=== PATIENT | male | born 1970 | race Caucasian/White ===

== ENCOUNTER 2016-07-02 06:28 | Emergency (ER) | payer OTHER ==
[2016-07-02 06:58] VITALS: BMI 31.1
--- NOTE | 2016-07-02 07:31 | PDOC ---
*Physical Exam - Vital Signs Last Vital Signs Temp Pulse Resp BP Pulse Ox 98.9 F 94 H 18 116/91 98 07/02/16 06:56 07/02/16 06:56 07/02/16 06:56 07/02/16 06:56 07/02/16 06:56 - Physical Exam Comments: 07/02/16 07:31 MIDLEVEL NOTE Pt seen by Midlevel Provider under my direct supervision. Pt interviewed and examined. Ancillary studies reviewed. I agree with plan as outlined by Midlevel Provider. 07/02/16 09:09 Site of recent right buttock injection is painful Pain and swelling to his right buttock after receiving testosterone injection last in right buttock Ultrasound Soft tissue swelling/edema without discrete collection/hematoma *DC/Admit/Observation/Transfer Diagnosis at time of Disposition: Right buttock pain - Discharge Dispostion Disposition: HOME Condition at time of disposition: Improved - Prescriptions Prescriptions: Cephalexin [Keflex] 500 mg PO BID #14 capsule - Referrals Referrals: Tone Tabares [Primary Care Provider] - - Patient Instructions Printed Discharge Instructions: Testosterone Injection Additional Instructions: Recommend you put hot soaks to the affected area at least 15 minutes continually 4 times a day. If symptoms do not improve over the next 24 hours and recommended starting the antibiotic. I also recommend that you follow-up with your PCP on Friday.
--- NOTE | 2016-07-02 07:38 | PDOC ---
History of Present Illness - General Chief Complaint: Respiratory Stated Complaint: REDNESS AND SWELLING, FEVER History Source: Patient Exam Limitations: No Limitations - History of Present Illness Initial Comments: 07/02/16 08:11 46-year-old male presents to the ED with complaints of pain and swelling to his right buttock after receiving testosterone injection last by his PCP secondary to fatigue. Patient states last night felt flushed and hot but did not take his temperature and today secondary to continual symptoms decided come to the ER for further evaluation. Patient denies medical history including diabetes or immunosuppression. Patient has no rectal discomfort or difficulty moving bowels. Timing/Duration: constant Severity: mild Associated Symptoms: reports: denies symptoms Past History - Past Medical History Allergies/Adverse Reactions: Allergies Allergy/AdvReac Type Severity Reaction Status Date / Time No Known Allergies Allergy Verified 07/02/16 06:58 Home Medications: Ambulatory Orders Cholecalciferol (Vitamin D3) [Vitamin D3] 50,000 unit PO WEEKLY 07/02/16 Ezetimibe [Zetia] 10 mg PO DAILY 07/02/16 Febuxostat [Uloric -] 40 mg PO DAILY 07/02/16 Rosuvastatin [Crestor -] 20 mg PO HS 07/02/16 - Psycho/Social/Smoking Cessation Hx Anxiety: No Suicidal Ideation: No Smoking Status: Yes Smoking History: Current every day smoker Number of Cigarettes Smoked Daily: 2 Information on smoking cessation initiated: No Patient Lives Alone: No Lives with/in: spouse/SO Review of Systems - Review of Systems Able to Perform ROS?: Yes Constitutional: No: Symptoms Reported HEENTM: No: Symptoms Reported Respiratory: No: Symptoms reported Cardiac (ROS): No: Symptoms Reported ABD/GI: No: Symptoms Reported : No: Symptoms Reported Integumentary: Yes: Lumps Neurological: No: Symptoms reported Endocrine: No: Symptoms Reported Hematologic/Lymphatic: No: Symptoms Reported *Physical Exam - Vital Signs Last Vital Signs Temp Pulse Resp BP Pulse Ox 98.9 F 94 H 18 116/91 98 07/02/16 06:56 07/02/16 06:56 07/02/16 06:56 07/02/16 06:56 07/02/16 06:56 - Physical Exam General Appearance: Yes: Nourished, Appropriately Dressed. No: Apparent Distress HEENT: positive: EOMI, KAROLINE. negative: Pale Conjunctivae Neck: positive: Supple Respiratory/Chest: positive: Lungs Clear, Normal Breath Sounds. negative: Respiratory Distress, Accessory Muscle Use Cardiovascular: positive: Regular Rhythm, Regular Rate. negative: Murmur Gastrointestinal/Abdominal: positive: Soft. negative: Decreased BS Extremity: positive: Normal Capillary Refill Integumentary: positive: Swelling (mild erythema over the right buttock measuring 4 x 5 cm) Neurologic: positive: Motor Strength 5/5 (ambulatory) Medical Decision Making - Medical Decision Making 07/02/16 08:23 Patient with right buttock swelling and feeling flushed patient had testosterone injection done last by Dr. Tabares. Patient concerning for cellulitis. Patient ordered for ultrasound. Patient will be discharged home otherwise is negative. Pt willl be discharged with antibiotics. 07/02/16 09:20 Ultrasound shows soft tissue swelling/edema to the right buttock without discrete fluid collection/hematoma. Patient be discharged home with prescription for Keflex if symptoms continue by tomorrow and recommended to place hot soaks to the affected area. Patient also recommended follow up with his PCP in 2 days. *DC/Admit/Observation/Transfer Diagnosis at time of Disposition: Right buttock pain - Discharge Dispostion Disposition: HOME Condition at time of disposition: Improved - Referrals Referrals: Tone Tabares [Primary Care Provider] - - Patient Instructions Printed Discharge Instructions: Testosterone Injection Additional Instructions: Recommend you put hot soaks to the affected area at least 15 minutes continually 4 times a day. If symptoms do not improve over the next 24 hours and recommended starting the antibiotic. I also recommend that you follow-up with your PCP on Friday.
[2016-07-02 09:50] VITALS: BP 142/85; PULSE 91; TEMP 98.1
== END 2016-07-02 09:50 | disposition home or self-care (01) ==
LOC: JER 06:28
DX: R22.2 Localized swelling, mass and lump, trunk (principal); Y84.8 Other medical procedures as the cause of abnormal reaction of the patient, or of later complication, without mention of misadventure at the time of the procedure; F17.210 Nicotine dependence, cigarettes, uncomplicated
CPT/HCPCS: 76882; 99283-25

== ENCOUNTER 2018-09-20 08:28 | Emergency (ER) | payer OTHER ==
[2018-09-20 08:37] VITALS: BP 145/89; PULSE 84; TEMP 98.5; BMI 32.5
--- NOTE | 2018-09-20 08:51 | PDOC ---
History of Present Illness - General Chief Complaint: Pain, Acute Stated Complaint: NECK PAIN Time Seen by Provider: 09/20/18 08:45 History Source: Patient Exam Limitations: No Limitations Past History - Past Medical History Allergies/Adverse Reactions: Allergies Allergy/AdvReac Type Severity Reaction Status Date / Time No Known Allergies Allergy Verified 09/20/18 08:34 Home Medications: Ambulatory Orders Cyclobenzaprine HCl 10 mg PO Q8H PRN #14 tablet 09/20/18 COPD: No Hypercholesterolemia: Yes - Suicide/Smoking/Psychosocial Hx Smoking Status: Yes Smoking History: Current every day smoker Have you smoked in the past 12 months: Yes Number of Cigarettes Smoked Daily: 6 Information on smoking cessation initiated: No Hx Alcohol Use: No Drug/Substance Use Hx: No Substance Use Type: None Review of Systems - Review of Systems Able to Perform ROS?: Yes Is the patient limited [place] proficient: Yes Constitutional: Yes: Symptoms Reported, See HPI, Malaise. No: Fever HEENTM: Yes: See HPI. No: Symptoms Reported Respiratory: No: Symptoms reported Musculoskeletal: Yes: Symptoms Reported, See HPI, Muscle Pain, Neck Pain All Other Systems: Reviewed and Negative *Physical Exam - Vital Signs Last Vital Signs Temp Pulse Resp BP Pulse Ox 98.5 F 84 18 145/89 97 09/20/18 08:35 09/20/18 08:35 09/20/18 08:35 09/20/18 08:35 09/20/18 08:35 - Physical Exam General Appearance: Yes: Nourished, Appropriately Dressed, Apparent Distress, Mild Distress HEENT: positive: KAROLINE, Normal ENT Inspection, TMs Normal, Pharynx Normal Neck: positive: Tender. negative: Supple (diminished ROM due to spasm and tendeness to right SCm and upper trapezius ), Tender midline Respiratory/Chest: positive: Lungs Clear Gastrointestinal/Abdominal: positive: Soft. negative: Tender Musculoskeletal: positive: Normal Inspection, Decreased Range of Motion, Muscle Spasm (palpable tension and spasm to SCM worse at inferior insertion. NO cervical spine/ bone tenderness. ). negative: Vertebral Tenderness Extremity: positive: Normal Capillary Refill, Normal Inspection Integumentary: positive: Normal Color, Dry, Warm Neurologic: positive: roof slater II-XII NML intact, Fully Oriented, Alert, Normal Mood/ Affect, Normal Response, Motor Strength 5/5 Progress Note - Progress Note Progress Note: cervical muscle strain- will treat with NSAIDS and Cyclobenzaprine *DC/Admit/Observation/Transfer Diagnosis at time of Disposition: Cervical myofascial strain Qualifiers: Encounter type: initial encounter Qualified Code(s): S16.1XXA - Strain of muscle, fascia and tendon at neck level, initial encounter - Discharge Dispostion Disposition: HOME Condition at time of disposition: Stable Decision to Admit order: No - Prescriptions Prescriptions: Cyclobenzaprine HCl 10 mg PO Q8H PRN #14 tablet PRN Reason: spasm - Referrals - Patient Instructions Printed Discharge Instructions: DI for Cervical Muscle Strain Additional Instructions: Rest, no heavy lifting or exercise until pain is resolved Hot soaks to neck and low back as often as possible/hot showers or Jacuzzis No massage or therapy until spasm is gone Continue Naprosyn 500 mg tablet, 1 tablet every 8 hours for the next 3 days then as needed for pain and swelling Cyclobenzaprine 1-10mg every 8 hours as needed for spasm If not significant improvement within 24 hours with medication and rest regime, followup with private physician for change in medications and /or therapy. - Post Discharge Activity Forms/Work/School Notes: Back to Work
== END 2018-09-20 08:53 | disposition home or self-care (01) ==
LOC: JERFT 08:28
DX: S16.1XXA Strain of muscle, fascia and tendon at neck level, initial encounter (principal); X58.XXXA Exposure to other specified factors, initial encounter; Y93.89 Activity, other specified; Y92.018 Other place in single-family (private) house as the place of occurrence of the external cause; Y99.8 Other external cause status; M62.838 Other muscle spasm
CPT/HCPCS: 99282-25

== ENCOUNTER 2020-11-10 07:06 | Emergency (ER) | payer OTHER ==
[2020-11-10 07:28] VITALS: BP 118/78; PULSE 70; TEMP 98.1; BMI 26.4
[2020-11-10] MEDS ORDERED: KETOROLAC TROMETHAMINE 30 MG/1 ML VIAL IM ONE (07:32)
[2020-11-10] MEDS ORDERED: KETOROLAC TROMETHAMINE 30 MG/1 ML VIAL ONE (07:41)
== END 2020-11-10 09:13 | disposition home or self-care (01) ==
LOC: JER 07:06
PROC: 3E0233Z Introduction of Anti-inflammatory into Muscle, Percutaneous Approach (ICD-10-PCS; principal; 2020-11-10)
DX: M79.671 Pain in right foot (principal); W20.8XXA Other cause of strike by thrown, projected or falling object, initial encounter; W22.8XXA Striking against or struck by other objects, initial encounter
CPT/HCPCS: 73630-TC-RT-FY; 99284-25

== ENCOUNTER 2021-10-04 10:55 | Emergency (ER) | payer BC, OTHER ==
[2021-10-04 10:58] VITALS: TEMP 98.8; BMI 31.8
[2021-10-04 12:18] VITALS: BP 135/99; PULSE 77
[2021-10-04 13:11] LABS: BASO % 0.5 % (0-2.0); EOS % 2.3 % (0-4.5); HEMATOCRIT 47.1 % (35.4-49); HEMOGLOBIN 15.3 GM/dL (11.7-16.9); LYMPH % 24.4 % (8-40); MCH 24.8 pg (25.7-33.7); MCHC 32.5 g/dl (32.0-35.9); MEAN CELL VOLUME 76.3 fl (80-96); MEAN PLT VOLUME 8.6 fl (7.5-11.1); MONO % 6.2 % (3.8-10.2); NEUT % 66.6 % (42.8-82.8); PLATELET COUNT 165 10^3/uL (134-434); RBC 6.17 M/mm3 (4.00-5.60); RDW 15.6 % (11.9-15.9); WHITE BLOOD COUNT 5.3 K/mm3 (4.0-10.0)
[2021-10-04 13:35] LABS: CALCIUM 8.8 mg/dL (8.5-10.1)
[2021-10-04 13:36] LABS: ALBUMIN 4.1 g/dl (3.4-5.0); BLOOD UREA NITROGEN 17.6 mg/dL (7-18)
[2021-10-04 13:39] LABS: CREATININE 1.3 mg/dL (0.55-1.3)
[2021-10-04 13:41] LABS: BILIRUBIN,TOTAL 0.5 mg/dL (0.2-1); TOT PROT 7.5 g/dl (6.4-8.2)
== END 2021-10-04 14:32 | disposition home or self-care (01) ==
LOC: JER 10:55
DX: R79.9 Abnormal finding of blood chemistry, unspecified (principal)
CPT/HCPCS: 36415; 71045-TC-FY; 80053; 82550; 82553; 84484; 85025; 93005; 93010; 99284-25

== ENCOUNTER 2022-10-03 20:38 | Emergency (ER) | payer BC ==
[2022-10-03 20:51] VITALS: BP 127/93; PULSE 101; RESP 19; TEMP 98.1; BMI 29.8
[2022-10-03] MEDS ORDERED: SODIUM CHLORIDE 0.9% 500 ML INFUS.BAG IV ONE (21:27)
[2022-10-03] MEDS ORDERED: METOCLOPRAMIDE HCL INJECTION 10 MG/2 ML VIAL IVPUSH ONE (21:28)
[2022-10-03] MEDS ORDERED: METOCLOPRAMIDE HCL INJECTION 10 MG/2 ML VIAL ONE (21:42)
[2022-10-03 23:03] LABS: HEMATOCRIT 40.1 % (35.4-49); HEMOGLOBIN 13.3 GM/dL (11.7-16.9); MCH 24.1 pg (25.7-33.7); MCHC 33.2 g/dl (32.0-35.9); MEAN CELL VOLUME 72.6 fl (80-96); MEAN PLT VOLUME 8.7 fl (7.5-11.1); PLATELET COUNT 177 10^3/uL (134-434); RBC 5.52 M/mm3 (4.00-5.60); RDW 13.8 % (11.9-15.9); WHITE BLOOD COUNT 5.1 K/mm3 (4.0-10.0)
[2022-10-03 23:24] LABS: POTASSIUM 3.7 mmol/L (3.5-5.1)
[2022-10-03 23:26] LABS: CALCIUM 9.6 mg/dL (8.5-10.1)
[2022-10-03 23:27] LABS: ALBUMIN 3.6 g/dl (3.4-5.0); BLOOD UREA NITROGEN 19.3 mg/dL (7-18)
[2022-10-03 23:32] LABS: BILIRUBIN,TOTAL 0.4 mg/dL (0.2-1); TOT PROT 6.6 g/dl (6.4-8.2)
== END 2022-10-04 01:01 | disposition home or self-care (01) ==
LOC: JER 20:38
PROC: 3E033NZ Introduction of Analgesics, Hypnotics, Sedatives into Peripheral Vein, Percutaneous Approach (ICD-10-PCS; principal; 2022-10-03)
DX: R53.1 Weakness (principal); R55 Syncope and collapse; R42 Dizziness and giddiness; E86.0 Dehydration
CPT/HCPCS: 36415; 70450-TC; 80053; 82550; 82553; 84484; 85027; 93005; 93010; 99285-25